=== PATIENT | male | born 1955 | race Caucasian/White ===

== ENCOUNTER 2017-12-07 06:34 | Day surgery (SDC) | payer OTHER | END 2017-12-07 16:20 | disposition home or self-care (01) | LOC: CIR.AMB 06:34 | DX: C83.38 Diffuse large B-cell lymphoma, lymph nodes of multiple sites (principal) | CPT/HCPCS: 36578; C1751 ==

== ENCOUNTER 2018-04-15 08:41 | Outpatient (CLI) | payer OTHER | END 2018-04-15 09:00 | disposition home or self-care (01) | LOC: RX STUDY 08:41 | DX: T82.868A Thrombosis due to vascular prosthetic devices, implants and grafts, initial encounter (principal) ==